=== PATIENT | female | born 1960 | race African-American/Black ===

== ENCOUNTER 2019-01-07 09:20 | Emergency (ER) | payer MEDICAID ==
[~2019-01-07] VITALS: Ht 167.6 cm; Wt 104.0 kg
[2019-01-07] MEDS ORDERED: KETOROLAC 30MG/ML VIAL IV STA (11:26)
[2019-01-07] MEDS ORDERED: ONDANSETRON HCL 4MG/2ML INJ IV STA (11:26)
[2019-01-07] MEDS ORDERED: SODIUM CHLORIDE 0.9% 1,000 ML IV ONE (11:26)
[2019-01-07 12:18] LABS: CLARITY URINE CLEAR (CLEAR); COLOR URINE YELLOW (YELLOW); KETONES URINE NEGATIVE (NEGATIVE); LEUKOCYTE ESTERASE URINE NEGATIVE (NEGATIVE); NITRITE URINE NEGATIVE (NEGATIVE); OCCULT BLOOD URINE 2+ (NEGATIVE); PROTEIN URINE 1+ (NEGATIVE); SPECIFIC GRAVITY URINE 1.015 (1.005-1.030)
[2019-01-07 12:49] LABS: *BARBITURATES SCREEN URINE NEGATIVE (NEGATIVE); CANNABINOID URINE SCREEN NEGATIVE (NEGATIVE); METHADONE URINE SCREEN NEGATIVE (NEGATIVE); OPIATES URINE SCREEN NEGATIVE (NEGATIVE); PHENCYCLIDINE URINE SCREEN NEGATIVE (NEGATIVE)
[2019-01-07 12:50] LABS: *AMPHETAMINES SCREEN URINE NEGATIVE (NEGATIVE); *BENZODIAZEPINES SCREEN URINE NEGATIVE (NEGATIVE); *COCAINE SCREEN URINE PRESUMTIVE POSITIVE (NEGATIVE)
[2019-01-07 12:54] LABS: CHLORIDE 110 mEq/L (98-107)
[2019-01-07 12:55] LABS: PROTHROMBIN TIME 10.7 sec (9.6-11.0)
[2019-01-07 12:59] LABS: ETHANOL BLOOD < 10 mg/dL
[2019-01-07] MEDS ORDERED: LEVOFLOXACIN 750MG PREMIX 150 ML IV ONE (13:00)
[2019-01-07 13:58] LABS: HEMATOCRIT. 36.9 % (36.0-48.0); HEMOGLOBIN. 12.2 g/dL (12.0-16.0); MEAN CORPUSCULAR HEMOGLOBIN 28.4 pg (28.0-32.0); MEAN CORPUSCULAR VOLUME 86.2 fL (81.0-99.0); MEAN PLATELET VOLUME 8.7 fl (7.4-10.4); PLATELET 361 x1000/uL (130-400); RED BLOOD CELL COUNT 4.28 mill/uL (4.2-5.4)
[2019-01-07] MEDS ORDERED: POTASSIUM CHLORIDE INJ 40 MEQ in DEXT 5% WATER 250 ML IV ONE (14:15)
[2019-01-07] MEDS ORDERED: IOHEXOL-300 100 ML BOTTLE ONE (14:27)
[2019-01-07 15:29] LABS: PLATELET ESTIMATE NORMAL
[2019-01-07 16:48] VITALS: BP 126/68
[2019-01-08] MEDS ORDERED: LEVOFLOXACIN 500MG PREMIX 100 ML IV SCH (14:15)
== END 2019-01-07 17:12 | disposition short-term general hospital (02) ==
LOC: ER 09:46
DX: J18.9 Pneumonia, unspecified organism (principal); M79.18 Myalgia, other site; M54.5 Low back pain; F17.200 Nicotine dependence, unspecified, uncomplicated; I10 Essential (primary) hypertension
CPT/HCPCS: 36415; 71045; 74177; 80053; 80305; 80320; 81003; 83690; 84484; 85025; 85610; 87040; 93005; 93970; 96361; 96365; 96375; 99285; J1885; J1956; J2405; J7030; Q9967; Z7610; G0480

== ENCOUNTER 2021-10-18 04:55 | Emergency (ER) | payer OTHER ==
[~2021-10-18] VITALS: Ht 167.6 cm; Wt 80.0 kg
[2021-10-18] MEDS ORDERED: KETOROLAC 60MG/2ML VIAL IM ONE (05:30)
[2021-10-18] MEDS ORDERED: METH-773 MT (06:13)
[2021-10-18] MEDS ORDERED: IBUP-2030 MT (06:13)
[2021-10-18 06:50] VITALS: BP 132/84
== END 2021-10-18 06:51 | disposition home or self-care (01) ==
LOC: ER 04:55
DX: M54.50 Low back pain, unspecified (principal); I10 Essential (primary) hypertension
CPT/HCPCS: 96372; 99283; J1885